=== PATIENT | male | born 1955 | race Caucasian/White ===

== ENCOUNTER → 2020-07-07 | Outpatient (CLI) | payer MEDICARE, OTHER ==
--- NOTE | 2020-07-07 12:10 | RAD ---
Nonvascular extremity ultrasound INDICATION: Right buttock thigh hematoma after fall COMPARISON: None. TECHNIQUE: Grayscale and color Doppler imaging of the area of clinical concern was performed in the region of the right gluteal fold. FINDINGS: A compressible hypoechoic irregular collection without internal vascularity is identified measuring approximately 10.8 x 5.6 x 2.6 cm. This correlates with the area of clinical concern as reported by the patient. IMPRESSION: Deep soft tissue hypoechoic structure, likely representing a hematoma or hemolymphatic collection related to a degloving injury (Heather-Stefan lesion). Recommend clinical follow-up with correlative imaging as clinically warranted to ensure resolution. Electronically signed by: Corrina Carcamo MD (07/07/2020 12:07 PM) [id number]
== END | disposition home or self-care (01) ==
LOC: US 10:31
PROVIDERS: ATTEND Family Medicine
DX: S70.11XA Contusion of right thigh, initial encounter (principal); W19.XXXA Unspecified fall, initial encounter; Y93.89 Activity, other specified; Y92.89 Other specified places as the place of occurrence of the external cause; Y99.8 Other external cause status
CPT/HCPCS: 76881